=== PATIENT | female | born 1995 | race Caucasian/White ===

== ENCOUNTER 2018-10-16 11:42 | Day surgery (SDC) | payer OTHER ==
[~2018-10-16] VITALS: Ht 167.6 cm; Wt 58.6 kg
[2018-10-16 12:25] VITALS: BP 108/74
== END 2018-10-16 17:50 | disposition home or self-care (01) ==
LOC: OUT 11:42
PROVIDERS: ATTEND Surgery
DX: K40.90 Unilateral inguinal hernia, without obstruction or gangrene, not specified as recurrent (principal); F32.9 Major depressive disorder, single episode, unspecified; Z88.1 Allergy status to other antibiotic agents; Z88.8 Allergy status to other drugs, medicaments and biological substances; Z72.89 Other problems related to lifestyle
CPT/HCPCS: 36415; 49650; 80053; 81025; 85025; C1781; J0171; J0690; J1100; J1885; J2250; J2405; J2704; J3010; J7120; S2900; J2710; J0330